=== PATIENT | male | born 1950 | race Asian ===

== ENCOUNTER 2020-12-18 11:37 | Emergency (ER) | payer OTHER ==
[~2020-12-18] VITALS: Ht 170.2 cm; Wt 83.5 kg
--- NOTE | 2020-12-18 11:38 | NUR ---
Patient BIBA BLS, transferred to bed 6. RN evaluating the patient at bedside.
[2020-12-18 11:39] VITALS: BP 158/78
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
[2020-12-18] MEDS ORDERED: ACETAMINOPHEN 325 MG TAB PO ONE (12:25)
[2020-12-18] MEDS ORDERED: LIDOCAINE MPF 1% 10 MG/ML VIAL INJ ONE (12:25)
--- NOTE | 2020-12-18 13:15 | NUR ---
Patient returned from CT scan.
[2020-12-18] MEDS ORDERED: CYCL-711 PO (14:33)
[2020-12-18 14:50] VITALS: BP 158/78
--- NOTE | 2020-12-18 14:50 | NUR ---
Patient discharged with v/s stable. Written and verbal after care instructions given CERVICAL SPRAIN, LAC CARE, AND TISSUE ADHESIVE WOUND CARE and explained. Patient alert, oriented and verbalized understanding of instructions. Ambulatory with steady gait. All questions addressed prior to discharge. ID band removed. Patient advised to follow up with PMD. Rx of FLEXERIL 10MG PO TID given. Patient educated on indication of medication including possible reaction and side effects. Opportunity to ask questions provided and answered.
== END 2020-12-18 14:50 | disposition home or self-care (01) ==
LOC: MED 11:37
DX: S01.412A Laceration without foreign body of left cheek and temporomandibular area, initial encounter (principal); S09.90XA Unspecified injury of head, initial encounter; M54.2 Cervicalgia; V89.2XXA Person injured in unspecified motor-vehicle accident, traffic, initial encounter; Y93.89 Activity, other specified; Y92.89 Other specified places as the place of occurrence of the external cause; Y99.8 Other external cause status
CPT/HCPCS: 12011; 70450; 72125; 90471; 90715; 99285; J2001